=== PATIENT | male | born 1950 | race Caucasian/White ===

== ENCOUNTER → 2020-12-16 08:37 | Outpatient (CLI) | payer MEDICARE, SELFPAY ==
--- NOTE | ~2020-12-16 | MR_ITS ---
EXAMINATION: MR knee LT wo con DATE: 12/16/2020 09:25 INDICATION: Left knee pain TECHNIQUE: Magnetic resonance imaging (MRI) of the left knee was performed without intravenous contra st. Sequences included coronal PD-weighted FSE, coronal PD-weighted FS FSE, sagittal T2-weighted FSE , sagittal PD-weighted FS FSE and axial PD weighted fat saturated FSE. COMPARISON: None. FINDINGS: Medial compartment: Complex tear of the posterior horn of the medial meniscus. This includes a longitudinal horizontal te ar plane although a secondary tear plane is suggested by the presence of a small displaced meniscal f lap extending anteriorly from the lateral side of the posterior horn along the shoulder the intercond ylar eminence. Chondral swelling and shallow chondral fissuring along the lateral aspect of the anter ior weightbearing medial femoral condyle. There is mild marrow edema underlying the medial rim of bot h the medial tibial plateau as well as the anterior weightbearing medial femoral condyle which could be related to either overlying chondromalacia or response to altered stress distribution resulting fr om the meniscal tear and mild medial extrusion of the medial meniscal body. Lateral compartment: Lateral meniscus is normal. Articular cartilage is normal. Patellofemoral compartment: Articular cartilage is normal. Ligaments and tendons: Anterior and posterior cruciate ligaments are normal. The medial collateral ligament and fibular gregg ateral ligament complex are normal. Patellar tendon is normal. Minimal distal quadriceps tendinopathy without discrete tear. The visualized medial and lateral hamstring tendons as well as the iliotibial band are normal. Mild tendinopathy without discrete tear at the femoral origin of the tendon of the medial head of the gastrocnemius. Fluid: Small left knee joint effusion. No loose osteochondral bodies identified. Small Armenta's cyst. Osseous/other: Bone alignment is normal. No fracture or pathologic marrow replacing process. IMPRESSION: 1. Complex tear at the posterior horn of the medial meniscus with small mildly displaced meniscal fla p at the lateral side of the posterior horn. 2. 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 3. Likely reactive small left knee joint effusion and small Armenta's cyst. 4. Mild tendinopathy of the proximal medial head of the gastrocnemius and minimal distal quadriceps t endinopathy. Reviewed, dictated and finalized at location A. IMPRESSION: 1. Complex tear at the posterior horn of the medial meniscus with small mildly displaced meniscal flap at the lateral side of the posterior horn. 2. 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 3. Likely reactive small left knee joint effusion and small Armenta's cyst. 4. Mild tendinopathy of the proximal medial head of the gastrocnemius and minim al distal quadriceps tendinopathy.
== END ==
PROVIDERS: Visit Provider Internal Medicine
DX: M17.12 Unilateral primary osteoarthritis, left knee (principal); S83.232A Complex tear of medial meniscus, current injury, left knee, initial encounter; X58.XXXA Exposure to other specified factors, initial encounter
CPT/HCPCS: 73721

== ENCOUNTER → 2021-07-07 08:44 | Outpatient (CLI) | payer MEDICARE, SELFPAY ==
--- NOTE | ~2021-07-07 | MR_ITS ---
EXAMINATION: MR lumbar spine wo con DATE: 07/07/2021 09:24 INDICATION: Severe low back pain. TECHNIQUE: Magnetic resonance imaging (MRI) of the lumbar spine was performed without intravenous con trast. Sequences included sagittal T2-weighted FSE, sagittal T2-weighted FS FSE, sagittal T1-weighted FSE, and axial T2-weighted FSE. COMPARISON: Lumbar spine MRI 06/18/2014 FINDINGS: There is 24 degrees levoscoliosis of thoracolumbar spine. There is 4 mm retrolisthesis of L 5 on S1. There is mild chronic anterior wedging of T12-L2 vertebral bodies. There is severely decreas ed disc height at L2-L3 and L5-S1, moderately decreased disc height at L1-L2, L3-L4, and L4-L5, and m ildly decreased disc height at T12-L1 with endplate remodeling. The distal spinal cord signal intensi ty is normal. The conus medullaris is at T12-L1. There are cysts in the kidneys measuring up to 2.1 c m on the left. The following disc levels are specifically discussed: T12-L1: The disc is bulging. There is moderate bilateral facet joint osteoarthritis. There is mild bi lateral neural foraminal stenosis. There is mild central canal stenosis. L1-L2: The disc is bulging and has an annular fissure. There is mild bilateral facet joint osteoarthr itis. There is moderate right and mild left neural foraminal stenosis. There is mild central canal st enosis. L2-L3: The disc is bulging and has an annular fissure. There is severe bilateral facet joint osteoart hritis. There is moderate bilateral neural foraminal stenosis. There is mild central canal stenosis. L3-L4: The disc is bulging and has an annular fissure. There is moderate bilateral facet joint osteoa rthritis. There is moderate bilateral neural foraminal stenosis. There is mild central canal stenosis . L4-L5: The disc is bulging and has an annular fissure. There is mild right and moderate left facet naila int osteoarthritis. There is moderate bilateral neural foraminal stenosis. There is mild central shaun l stenosis. L5-S1: The disc is bulging and has an annular fissure. There is mild bilateral facet joint osteoarthr itis. There is moderate bilateral neural foraminal stenosis. There is mild central canal stenosis. IMPRESSION: 1. Severe lumbar spondylosis, mildly worsened from 06/18/2014. Reviewed, dictated and finalized at location B. [employer]
== END ==
PROVIDERS: PCP Internal Medicine; Visit Provider Internal Medicine
DX: M47.896 Other spondylosis, lumbar region (principal)
CPT/HCPCS: 72148

== ENCOUNTER → 2022-12-07 12:40 | Outpatient (CLI) | payer MEDICARE, SELFPAY ==
--- NOTE | ~2022-12-07 | CT_ITS ---
EXAMINATION: CT abdomen pelvis wo con DATE: 12/07/2022 13:02 INDICATION: Left flank pain. Hematuria. TECHNIQUE: Computed tomography (CT) of the abdomen and pelvis was performed without intravenous contr ast. Automated exposure control and iterative reconstruction technique were employed. The dose-length product was 555.39 mGy-cm. COMPARISON: CT abdomen and pelvis 09/03/17 FINDINGS: The visualized portions of the lung bases demonstrate mild atelectasis. No pleural effusion . The heart size is normal. There are coronary artery calcifications. No pericardial effusion. There is a small sliding hiatal hernia. There are cysts in the liver measuring up to 6 mm. Calcifications i n the spleen are consistent with old granulomatous disease. The gallbladder, pancreas, and adrenal gl ands are normal. There are cysts in the kidneys measuring up to 2.4 cm on the left. There is no uroli thiasis. The prostate is moderately enlarged. There is diverticulosis of the colon without evidence o f diverticulitis. The appendix is normal. There are umbilical and left inguinal hernias containing fa t. There are no pathologically enlarged lymph nodes. There is no free intraperitoneal fluid. There is thoracolumbar levoscoliosis and severe spondylosis. IMPRESSION: 1. No urolithiasis. 2. Small sliding hiatal hernia. 3. Umbilical and left inguinal hernias containing fat. Reviewed, dictated and finalized at location A.
== END ==
PROVIDERS: Visit Provider Physician Assistant Medical
DX: K44.9 Diaphragmatic hernia without obstruction or gangrene (principal); K42.9 Umbilical hernia without obstruction or gangrene; K40.90 Unilateral inguinal hernia, without obstruction or gangrene, not specified as recurrent
CPT/HCPCS: 74176

== ENCOUNTER → 2023-02-23 12:35 | Outpatient (CLI) | payer MEDICARE, SELFPAY ==
--- NOTE | ~2023-02-23 | MR_ITS ---
EXAMINATION: MR cervical spine wo con DATE: 02/23/2023 13:15 INDICATION: Neck pain. TECHNIQUE: Magnetic resonance imaging (MRI) of the cervical spine was performed without intravenous c ontrast. COMPARISON: Cervical spine radiographs 11/30/2022 FINDINGS: There is 8 degrees levocurvature of cervicothoracic spine. There is hypolordosis of cervica l spine. Vertebral body heights are normal. There is mildly decreased disc height at C4-C5, C5-C6, an d C6-C7. The spinal cord signal intensity is normal. The following disc levels are specifically discu ssed: C2-C3: There is a central protrusion. There is mild right uncovertebral joint osteoarthritis. There i s mild bilateral facet joint osteoarthritis. There is mild right neural foraminal stenosis. There is mild central canal stenosis. C3-C4: There is a central protrusion. There is mild bilateral uncovertebral joint osteoarthritis. The re is severe right and mild left facet joint osteoarthritis. There is mild right neural foraminal gadiel nosis. There is mild central canal stenosis. C4-C5: There is a central extrusion. There is mild left uncovertebral joint osteoarthritis. There is mild bilateral facet joint osteoarthritis. There is mild left neural foraminal stenosis. There is mil d central canal stenosis. C5-C6: The disc is bulging. There is severe bilateral uncovertebral joint osteoarthritis. There is se serg right and moderate left facet joint osteoarthritis. There is moderate right and mild left neural foraminal stenosis. There is mild central canal stenosis. C6-C7: The disc is bulging. There is severe bilateral uncovertebral joint osteoarthritis. There is mi ld bilateral facet joint osteoarthritis. There is mild lateral neural foraminal stenosis. There is mi ld central canal stenosis. C7-T1: The disc does not extend beyond the endplate margin. There is no uncovertebral joint osteoarth ritis. There is severe right and mild left facet joint osteoarthritis. There is mild right neural for aminal stenosis. There is no central canal stenosis. IMPRESSION: 1. Moderate cervical spondylosis. Reviewed, dictated and finalized at location E.
== END ==
PROVIDERS: Visit Provider Physician Assistant Medical
DX: M47.892 Other spondylosis, cervical region (principal)
CPT/HCPCS: 72141

== ENCOUNTER 2025-07-16 07:47 | Outpatient (CLI) | payer MEDICARE, SELFPAY ==
--- NOTE | ~2025-07-16 | US_ITS ---
EXAMINATION: US soft tissue abdomen DATE: 07/16/2025 08:35 INDICATION: Unspecified abdominal hernia without obstruction TECHNIQUE: Multiple grayscale and Doppler ultrasound images of the left abdominal wall at the region of concern at the left and right lower quadrants were obtained. COMPARISON: CT dated 12/07/2022 FINDINGS: No ventral hernia is identified in the region of concern at either the left or right lower quadrants. Small fat-containing umbilical and small fat-containing left inguinal hernias evident on prior CT dated 12/07/2022 are not imaged. IMPRESSION: 1. No ventral hernia is identified in the eighth of the left or right lower quadrant regions of concern. Reviewed, dictated and finalized at location A. OFFICE IMPRESSION: 1. No ventral hernia is identified in the eighth of the left or right lower bess drant regions of concern.
== END 2025-07-16 07:48 | disposition home or self-care (01) ==
LOC: MICIMG 07:48
PROVIDERS: PCP Nurse Practitioner Family; Visit Provider Nurse Practitioner Family
DX: K46.9 Unspecified abdominal hernia without obstruction or gangrene (principal)
CPT/HCPCS: 76705